=== PATIENT | male | born 1940 | race Caucasian/White ===

== ENCOUNTER 2020-10-12 20:56 | Observation (INO) | payer MEDICARE ==
[2020-10-12] MEDS ORDERED: Sodium Chloride 0.9% 10 ML Syringe FLUSH PRN (21:33)
[2020-10-12] MEDS ORDERED: Ondansetron 4 MG/2 ML SDV IV PRN (22:59)
[2020-10-12] MEDS ORDERED: Sodium Chloride 0.9% 1,000 ML IV SCH (23:00)
[2020-10-12] MEDS ORDERED: Warfarin 2.5 MG Tab PO SCH (23:15)
--- NOTE | 2020-10-12 23:23 | EDM.PDOC ---
ED HPI GENERAL MEDICAL PROBLEM - General Chief Complaint: General Stated Complaint: PASSED OUT Time Seen by Provider: 10/12/20 21:05 Source of Information: Reports: Patient, Family History Limitations: Reports: No Limitations - History of Present Illness INITIAL COMMENTS - FREE TEXT/NARRATIVE: Patient is a 80 YO M who presented to the ED because of a syncopal episode which happened at about 2029. They went to watch a game at 1900 and then got home at 2029. He went to remove the leash of this dog which got tangled into a pole and while removing it, he felt dizzy and passed out. He was unresponsive for 3-4 minutes and was confused for several minutes according to the . There is no associated headache,nausea,vomiting. Denies having any chest pain, palpitations. There is no cough/cold, fever,chills. At 2 pm today he slipped and fell and landed on his right shoulder. He said he wasn't feeling dizzy before falling. - Related Data Allergies Allergy/AdvReac Type Severity Reaction Status Date / Time No Known Allergies Allergy Verified 10/12/20 22:09 Home Meds: Home Meds .Fish Oil 1 dose PO DAILY 10/12/20 [History] .Vitamin D 1 dose PO DAILY 10/12/20 [History] Aspirin [Halfprin] 81 mg PO DAILY 10/12/20 [History] Metoprolol Succinate 50 mg PO DAILY 10/12/20 [History] Multivitamin 1 each PO DAILY 10/12/20 [History] Potassium Chloride 10 meq PO BID 10/12/20 [History] Warfarin [Coumadin] 7.5 mg PO MOWEFR 10/12/20 [History] Warfarin [Coumadin] 50 mg PO SUTUTHSA 10/12/20 [History] metFORMIN HCl [Metformin HCl ER] 500 mg PO DAILY 10/12/20 [History] Past Medical History HEENT History: Reports: Hard of Hearing, Other (See Below) Other HEENT History: Wears glasses and hearing aides. Cardiovascular History: Reports: Afib Endocrine/Metabolic History: Reports: Other (See Below) Other Endocrine/Metabolic History: Takes Metformin for diabetes. - Past Surgical History HEENT Surgical History: Reports: Tonsillectomy Cardiovascular Surgical History: Reports: Other (See Below) Other Cardiovascular Surgeries/Procedures: Stated had cardiac bypass and valve surgery in June 2020. History of vein stripping in legs. Social & Family History - Alcohol Use Days Per Week of Alcohol Use: 4 Number of Drinks Per Day: 1 Total Drinks Per Week: 4 - Recreational Drug Use Recreational Drug Use: No ED ROS GENERAL - Review of Systems Review Of Systems: See Below Constitutional: Reports: No Symptoms HEENT: Reports: No Symptoms Respiratory: Reports: No Symptoms Cardiovascular: Reports: No Symptoms Endocrine: Reports: No Symptoms GI/Abdominal: Reports: No Symptoms : Reports: No Symptoms Musculoskeletal: Reports: No Symptoms Skin: Reports: No Symptoms Neurological: Reports: Confusion, Dizziness, Syncope Psychiatric: Reports: No Symptoms ED EXAM, GENERAL - Physical Exam Exam: See Below Exam Limited By: No Limitations General Appearance: Alert, No Apparent Distress Eye Exam: Bilateral Eye: PERRL Ears: Normal External Exam, Normal Canal Nose: Normal Inspection, Normal Mucosa, No Blood Throat/Mouth: Normal Inspection, Normal Lips Head: Atraumatic, Normocephalic Neck: Normal Inspection, Supple, Non-Tender, Full Range of Motion Respiratory/Chest: No Respiratory Distress, Lungs Clear, Normal Breath Sounds, No Accessory Muscle Use, Chest Non-Tender Cardiovascular: Normal Peripheral Pulses, Regular Rate, Rhythm, No Edema, No Gallop GI/Abdominal: Normal Bowel Sounds, Soft, Non-Tender, No Organomegaly Back Exam: Normal Inspection, Full Range of Motion Extremities: Normal Inspection, Normal Range of Motion, Non-Tender, No Pedal Edema, Normal Capillary Refill Neurological: Alert, Oriented, CN II-XII Intact, Normal Cognition, Normal Gait, Normal Reflexes, No Motor/Sensory Deficits Psychiatric: Normal Affect Course - Vital Signs Text/Narrative:: Labs/EKG/CXR/Head CT result was discussed with patient and his Last Recorded V/S: Last Vital Signs Temp 36.5 C 10/12/20 21:00 Pulse Resp BP Pulse Ox - Orders/Labs/Meds Orders: Active Orders 24 hr Category Date Time Status Patient Status [ADT] Routine ADT 10/12/20 23:00 Active Ambulate [RC] ASDIRECTED Care 10/12/20 22:59 Active Blood Glucose Check, Bedside [RC] ONETIME Care 10/12/20 21:06 Active Cardiac Monitoring [RC] CONTINUOUS Care 10/12/20 23:04 Active EKG Documentation Completion [RC] ASDIRECTED Care 10/12/20 20:58 Active Intake and Output [RC] QSHIFT Care 10/12/20 23:04 Active Oxygen Therapy [RC] PRN Care 10/12/20 23:00 Active Pulse Oximetry [RC] PRN Care 10/12/20 23:04 Active VTE/DVT Education [RC] Per Unit Routine Care 10/12/20 23:00 Active Vital Signs [RC] Q4H Care 10/12/20 23:00 Active Heart Healthy Diet [DIET] Diet 10/13/20 Breakfast Ordered Chest 1V Frontal [CR] Stat Exams 10/12/20 21:33 Taken Head wo Cont [CT] Stat Exams 10/12/20 21:33 Taken BASIC METABOLIC PANEL,BMP [CHEM] Routine Lab 10/12/20 22:59 Ordered CBC WITH AUTO DIFF [HEME] AM Lab 10/13/20 05:11 Ordered .Fish Oil Med 10/13/20 09:00 Ordered 1 dose PO DAILY .Vitamin D Med 10/13/20 09:00 Ordered 1 dose PO DAILY Aspirin [Halfprin] Med 10/13/20 09:00 Ordered 81 mg PO DAILY Docusate Sodium/Sennosides [Senna Plus] Med 10/12/20 22:59 Ordered 1 tab PO BID PRN Metoprolol Succinate [Toprol XL] Med 10/13/20 09:00 Ordered 50 mg PO DAILY Multivitamin [Multivitamin] Med 10/13/20 09:00 Ordered 1 each PO DAILY Ondansetron [Zofran] Med 10/12/20 22:59 Ordered 4 mg IV Q4H PRN Potassium Chloride [Klor-Con 10] Med 10/13/20 09:00 Ordered 10 meq PO BID Sodium Chloride 0.9% [Normal Saline] 1,000 ml Med 10/12/20 23:00 Ordered IV ASDIRECTED Sodium Chloride 0.9% [Saline Flush] Med 10/12/20 21:33 Active 10 ml FLUSH ASDIRECTED PRN Warfarin [Coumadin] Med 10/12/20 23:15 Ordered 50 mg PO SUTUTHSA Warfarin [Coumadin] Med 10/13/20 23:07 Ordered 7.5 mg PO MOWEFR metFORMIN [Glucophage XR] Med 10/13/20 09:00 Ordered 500 mg PO DAILY Saline Lock Insert [OM.PC] Routine Oth 10/12/20 21:33 Ordered Sequential Compression Device [OM.PC] Per Unit Routine Oth 10/12/20 23:05 Orde red Resuscitation Status Routine Resus Stat 10/12/20 22:59 Ordered EKG 12 Lead [EK] Routine Ther 10/12/20 20:58 Ordered Medication Orders Aspirin (Halfprin) 81 mg PO DAILY [facility] Sodium Chloride (Normal Saline) 1,000 mls @ 100 mls/hr IV ASDIRECTED [facility] Metformin HCl (Glucophage Xr) 500 mg PO DAILY [facility] Metoprolol Succinate (Toprol Xl) 50 mg PO DAILY [facility] Non-Formulary Medication (.Fish Oil) 1 dose PO DAILY [facility] Non-Formulary Medication (.Vitamin D) 1 dose PO DAILY [facility] Non-Formulary Medication (Multivitamin [Multivitamin]) 1 each PO DAILY [facility] Ondansetron HCl (Zofran) 4 mg IV Q4H PRN PRN Reason: Nausea/Vomiting Potassium Chloride (Klor-Con 10) 10 meq PO BID [facility] Senna/Docusate Sodium (Senna Plus) 1 tab PO BID PRN PRN Reason: Constipation Sodium Chloride (Saline Flush) 10 ml FLUSH ASDIRECTED PRN PRN Reason: Keep Vein Open Warfarin Sodium (Coumadin) 7.5 mg PO MOWEFR [facility] Labs: Laboratory Tests 10/12/20 10/12/20 10/12/20 Range/Units 21:06 21:40 21:40 WBC 11.5 H (3.2-10.1) x10-3/uL RBC 4.61 (3.90-5.90) x10(6)uL Hgb 10.8 L (12.9-17.7) g/dL Hct 35.0 L (38.3-50.1) % MCV 75.9 L (80.8-98.7) fL MCH 23.3 L (27.0-33.3) pg MCHC 30.7 (28.7-35.3) g/dL RDW 17.0 H (12.4-15.0) % Plt Count 273 (117-477) x10(3)uL MPV 8.6 (6.7-11.0) fL Neut % (Auto) 63.7 (40.3-71.8) % Lymph % (Auto) 21.1 (15.8-45.3) % [place] % (Auto) 9.6 (5.5-15.2) % Eos % (Auto) 5.1 (0.1-6.8) % Baso % (Auto) 0.5 (0.3-3.8) % Neut # (Auto) 7.3 H (1.7-6.9) x10-3/uL Lymph # (Auto) 2.4 (0.5-4.5) x10-3/uL [place] # (Auto) 1.1 (0.0-1.2) x10-3/uL Eos # (Auto) 0.6 (0.0-0.6) x10-3/uL Baso # (Auto) 0.1 (0.0-0.3) x10-3/uL PT 23.5 H (9.0-11.1) sec INR 2.30 H (1.00-1.24) Sodium (135-145) mmol/L Potassium (3.5-5.3) mmol/L Chloride (100-110) mmol/L Carbon Dioxide (21-32) mmol/L BUN (7-18) mg/dL Creatinine (0.70-1.30) mg/dL Est Cr Clr Drug Dosing Estimated GFR (MDRD) (>60) BUN/Creatinine Ratio (9-20) Glucose (80-116) mg/dL POC Glucose 148 H (74-100) mg/dL Calcium (8.6-10.2) mg/dL Total Bilirubin (0.1-1.3) mg/dL AST (5-25) IU/L ALT (12-36) U/L Alkaline Phosphatase (56-112) IU/L Troponin I (4.0-60.3) pg/mL Total Protein (6.0-8.0) g/dL Albumin (3.2-4.6) g/dL Globulin g/dL Albumin/Globulin Ratio SARS-CoV-2 RNA (SARAH) (NEGATIVE) 10/12/20 10/12/20 10/12/20 Range/Units 21:40 21:40 21:55 WBC (3.2-10.1) x10-3/uL RBC (3.90-5.90) x10(6)uL Hgb (12.9-17.7) g/dL Hct (38.3-50.1) % MCV (80.8-98.7) fL MCH (27.0-33.3) pg MCHC (28.7-35.3) g/dL RDW (12.4-15.0) % Plt Count (117-477) x10(3)uL MPV (6.7-11.0) fL Neut % (Auto) (40.3-71.8) % Lymph % (Auto) (15.8-45.3) % [place] % (Auto) (5.5-15.2) % Eos % (Auto) (0.1-6.8) % Baso % (Auto) (0.3-3.8) % Neut # (Auto) (1.7-6.9) x10-3/uL Lymph # (Auto) (0.5-4.5) x10-3/uL [place] # (Auto) (0.0-1.2) x10-3/uL Eos # (Auto) (0.0-0.6) x10-3/uL Baso # (Auto) (0.0-0.3) x10-3/uL PT (9.0-11.1) sec INR (1.00-1.24) Sodium 139 (135-145) mmol/L Potassium 4.6 (3.5-5.3) mmol/L Chloride 103 (100-110) mmol/L Carbon Dioxide 28 (21-32) mmol/L BUN 29 H (7-18) mg/dL Creatinine 1.5 H (0.70-1.30) mg/dL Est Cr Clr Drug Dosing TNP Estimated GFR (MDRD) 45 L (>60) BUN/Creatinine Ratio 19.3 (9-20) Glucose 137 H (80-116) mg/dL POC Glucose (74-100) mg/dL Calcium 8.7 (8.6-10.2) mg/dL Total Bilirubin 0.5 (0.1-1.3) mg/dL AST 29 H (5-25) IU/L ALT 32 (12-36) U/L Alkaline Phosphatase 75 (56-112) IU/L Troponin I 19.6 (4.0-60.3) pg/mL Total Protein 7.0 (6.0-8.0) g/dL Albumin 3.8 (3.2-4.6) g/dL Globulin 3.2 g/dL Albumin/Globulin Ratio 1.2 SARS-CoV-2 RNA (SARAH) Negative (NEGATIVE) Meds: Medications Generic Name Dose Route Start Last Admin Trade Name Freq PRN Reason Stop Dose Admin Aspirin 81 mg 10/13/20 09:00 Halfprin PO DAILY [facility] Sodium Chloride 1,000 mls @ 100 mls/hr 10/12/20 23:00 Normal Saline IV ASDIRECTED [facility] Metformin HCl 500 mg 10/13/20 09:00 Glucophage Xr PO DAILY [facility] Metoprolol Succinate 50 mg 10/13/20 09:00 Toprol Xl PO DAILY [facility] Non-Formulary Medication 1 dose 10/13/20 09:00 .Fish Oil PO DAILY [facility] Non-Formulary Medication 1 dose 10/13/20 09:00 .Vitamin D PO DAILY [facility] Non-Formulary Medication 1 each 10/13/20 09:00 Multivitamin [Multivitamin] PO DAILY [facility] Ondansetron HCl 4 mg 10/12/20 22:59 Zofran IV Q4H PRN Nausea/Vomiting Potassium Chloride 10 meq 10/13/20 09:00 Klor-Con 10 PO BID [facility] Senna/Docusate Sodium 1 tab 10/12/20 22:59 Senna Plus PO BID PRN Constipation Sodium Chloride 10 ml 10/12/20 21:33 Saline Flush FLUSH ASDIRECTED PRN Keep Vein Open Warfarin Sodium 7.5 mg 10/13/20 23:07 Coumadin PO MOWEFR [facility] Warfarin Sodium 50 mg 10/12/20 23:15 Coumadin PO SUTUTHSA [facility] Departure - Departure Time of Disposition: 22:30 Disposition: Refer to Observation Condition: Good Clinical Impression: Syncope, Anemia, Chronic a-fib, Dehydration, Diabetes mellitus - Discharge Information Sepsis Event Note (ED) - Evaluation Sepsis Screening Result: No Definite Risk - Focused Exam Vital Signs: Vital Signs Temp 10/12/20 21:00 36.5 C - My Orders Last 24 Hours: My Active Orders 10/12/20 20:58 EKG Documentation Completion [RC] ASDIRECTED EKG 12 Lead [EK] Routine 10/12/20 21:06 Blood Glucose Check, Bedside [RC] ONETIME 10/12/20 21:33 Chest 1V Frontal [CR] Stat Head wo Cont [CT] Stat Sodium Chloride 0.9% [Saline Flush] 10 ml FLUSH ASDIRECTED PRN Saline Lock Insert [OM.PC] Routine 10/12/20 22:59 Ambulate [RC] ASDIRECTED BASIC METABOLIC PANEL,BMP [CHEM] Routine Docusate Sodium/Sennosides [Senna Plus] 1 tab PO BID PRN Ondansetron [Zofran] 4 mg IV Q4H PRN Resuscitation Status Routine 10/12/20 23:00 Patient Status [ADT] Routine Oxygen Therapy [RC] PRN VTE/DVT Education [RC] Per Unit Routine Vital Signs [RC] Q4H Sodium Chloride 0.9% [Normal Saline] 1,000 ml IV ASDIRECTED 10/12/20 23:04 Cardiac Monitoring [RC] CONTINUOUS Intake and Output [RC] QSHIFT Pulse Oximetry [RC] PRN 10/12/20 23:05 Sequential Compression Device [OM.PC] Per Unit Routine 10/12/20 23:15 Warfarin [Coumadin] 50 mg PO SUTUTHSA 10/13/20 05:11 CBC WITH AUTO DIFF [HEME] AM 10/13/20 Breakfast Heart Healthy Diet [DIET] 10/13/20 09:00 .Fish Oil 1 dose PO DAILY .Vitamin D 1 dose PO DAILY Aspirin [Halfprin] 81 mg PO DAILY Metoprolol Succinate [Toprol XL] 50 mg PO DAILY Multivitamin [Multivitamin] 1 each PO DAILY Potassium Chloride [Klor-Con 10] 10 meq PO BID metFORMIN [Glucophage XR] 500 mg PO DAILY 10/13/20 23:07 Warfarin [Coumadin] 7.5 mg PO MOWEFR - Assessment/Plan Last 24 Hours: My Active Orders 10/12/20 20:58 EKG Documentation Completion [RC] ASDIRECTED EKG 12 Lead [EK] Routine 10/12/20 21:06 Blood Glucose Check, Bedside [RC] ONETIME 10/12/20 21:33 Chest 1V Frontal [CR] Stat Head wo Cont [CT] Stat Sodium Chloride 0.9% [Saline Flush] 10 ml FLUSH ASDIRECTED PRN Saline Lock Insert [OM.PC] Routine 10/12/20 22:59 Ambulate [RC] ASDIRECTED BASIC METABOLIC PANEL,BMP [CHEM] Routine Docusate Sodium/Sennosides [Senna Plus] 1 tab PO BID PRN Ondansetron [Zofran] 4 mg IV Q4H PRN Resuscitation Status Routine 10/12/20 23:00 Patient Status [ADT] Routine Oxygen Therapy [RC] PRN VTE/DVT Education [RC] Per Unit Routine Vital Signs [RC] Q4H Sodium Chloride 0.9% [Normal Saline] 1,000 ml IV ASDIRECTED 10/12/20 23:04 Cardiac Monitoring [RC] CONTINUOUS Intake and Output [RC] QSHIFT Pulse Oximetry [RC] PRN 10/12/20 23:05 Sequential Compression Device [OM.PC] Per Unit Routine 10/12/20 23:15 Warfarin [Coumadin] 50 mg PO SUTUTHSA 10/13/20 05:11 CBC WITH AUTO DIFF [HEME] AM 10/13/20 Breakfast Heart Healthy Diet [DIET] 10/13/20 09:00 .Fish Oil 1 dose PO DAILY .Vitamin D 1 dose PO DAILY Aspirin [Halfprin] 81 mg PO DAILY Metoprolol Succinate [Toprol XL] 50 mg PO DAILY Multivitamin [Multivitamin] 1 each PO DAILY Potassium Chloride [Klor-Con 10] 10 meq PO BID metFORMIN [Glucophage XR] 500 mg PO DAILY 10/13/20 23:07 Warfarin [Coumadin] 7.5 mg PO MOWEFR
[2020-10-13] MEDS ORDERED: MULTIVITAMIN PO SCH (09:00)
[2020-10-13] MEDS ORDERED: VITAMIN D PO SCH (09:00)
[2020-10-13] MEDS ORDERED: FISH OIL PO SCH (09:00)
--- NOTE | 2020-10-13 10:11 | CR ---
INDICATION: Unresponsive episode/passed out. CHEST ONE VIEW: Two AP upright portable views of the chest 10/12/20 - no comparisons. The heart appears somewhat enlarged. Post median sternotomy change is noted. The aorta is tortuous to a mild degree with calcification in the arch area. Overlying EKG leads are noted. Pulmonary vasculature is slightly prominent in the upper lung guajardo raising question of a mild or early CHF - correlate clinically. A definite consolidating pneumonia or effusion was not identified. Overlying zipper pull is noted. Degenerative change is noted at the shoulder joints bilaterally with impingement suggested bilaterally. IMPRESSION: ASHD, cardiomegaly, post median sternotomy change with probable mild CHF. MTDD
[2020-10-13] MEDS ORDERED: Gadoteridol 279.3 MG/ML 20 ML SDV IV ONE (11:00)
--- NOTE | 2020-10-13 19:01 | PN ---
DATE SEEN: 10/13/2020 SUBJECTIVE: Riky Ibarra is a 80-year-old male admitted with episode of loss of consciousness. Etiology still uncertain. Laboratory studies were unremarkable. Troponin was negative, and MRI of his brain and CT revealed no pathology. He did have a bout of tachycardia, i.e., atrial fibrillation up to 140 simply walking in the [place]. Presently on Metoprolol-XL 50 mg 1 p.o. b.i.d. Other medicines reviewed and appropriate. LABORATORY STUDIES: None pending. OBJECTIVE: VITAL SIGNS: Stable. Blood pressure little elevated at 140s/80s. CONSTITUTIONAL: Speech was fluent. NECK: Benign. Thyroid small. CHEST: On auscultation, clear lung guajardo. HEART: Irregularly irregular at 80. ABDOMEN: Benign. ASSESSMENT: Vasovagal episodes versus tachycardia. PLAN: Increase metoprolol to 150 mg in divided doses. Caffeine in moderation. Follow up in 2 weeks' time. Cardiology visit to be considered. /[id number] IMELDA/NINFA
[2020-10-13] MEDS ORDERED: Potassium Chloride 10 MEQ Tab.ER *PTOM PO SCH (21:00)
[2020-10-13] MEDS ORDERED: Metoprolol Succinate 50 MG Tab.ER *PTOM PO SCH (21:00)
[2020-10-13] MEDS ORDERED: Warfarin 2.5 MG Tab *PTOM PO SCH (21:00)
[2020-10-13] MEDS ORDERED: Aspirin 81 MG Tab.EC PO SCH (21:00)
--- NOTE | 2020-10-14 06:51 | HP ---
ADMISSION DATE: 10/12/2020 Loss of consciousness, vasovagal episode. HISTORY OF PRESENT ILLNESS: Riky Ibarra is a 80-year-old male who was seen at [facility] on the evening of 10/12/2020. He had been in reasonable health. He had gone to the local basketball game, left the house at 0700, had an uneventful time, and got home shortly after about 0930. He went out to unwrap the wiring for his dog on a pole outside the house, bent down, kneeled down, and collapsed. Uncertain of circumstances. Did not hurt himself during the fall. was attending and noted he was on the ground, unresponsive, not moving, not wakeful, lasted maybe about 3 minutes. He had no preceding symptoms of chest pain. He was a little bit confused when he woke up, was able to be up and about, and attended to and addressed for care. In the interim, again he had noted no recent chest pain or complicating issue. Had coronary bypass surgery in two valves, one replaced, one repaired, June 2020. Doing well. Cardiology followup has been satisfactory. MEDICATIONS: Daily medications include: 1. Pravastatin 80 mg one p.o. daily, hyperlipidemia. 2. Fish oil. 3. Vitamin D. 4. Aspirin. 5. Metformin 500 mg b.i.d., NIDDM. 6. Metoprolol XL 50 mg 1 p.o. daily, blood pressure control. 7. Multivitamin. 8. 10 mEq potassium chloride, hypokalemia. 9. Warfarin per protocol. ALLERGIES: No known medication, environmental, or latex allergies. PAST MEDICAL HISTORY: Significant for previous coronary bypass surgery x1, preexisting heart disease, in two valves, replaced June 2020. He has had no major other operative procedures, hospitalizations, unusual childhood diseases, major injuries, or fractures. Medical problems include NIDDM, hypertension, and coronary disease. 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 Quit smoking in 1975. is 80, good health. Three kids, two boys and one daughter. Seven grandchildren, six boys and one girl. Remote smoker. No alcohol or illicit drug use. FAMILY HISTORY: Negative for heart disease. REVIEW OF SYSTEMS: 13 review of systems noted. Pertinent positives and negatives are listed in HPI. All other systems can be considered negative or normal without conflict. PHYSICAL EXAMINATION: VITAL SIGNS: 36.6, 72, 144/75, 16 and 18. GENERAL: Cooperative, conversant. Appears his stated age. HEENT: Conjunctivae clear. Bright tympanic membranes. Clear nasal discharge. Mouth and oropharynx clear. NECK: Benign. Thyroid small. CHEST: On auscultation, clear in all lung guajardo. HEART: On auscultation, no ectopy or murmur. Sternotomy scar well healed. ABDOMEN: Benign. No hepatosplenomegaly. No palpable masses. GENITOURINARY and RECTAL: Deferred. EXTREMITIES: Well perfused. LABORATORY STUDIES: White count 11,500, hemoglobin 10.8, hematocrit 35.5, MCV 75.9, platelets 273,000. Repeat; 11,000 white count, 10.4 hemoglobin, 33.3 hematocrit. INR 2.30, therapeutic. Electrolytes revealed moderate reduction in GI function. BUN 29, repeat 23; creatinine 1.5, repeat 1.2; GFR 45, repeat 58. COVID negative. CAT scan: No pathology. Some decrease in brain size. EKG: Atrial fibrillation, rate controlled in the 70s. ASSESSMENT: Vasovagal versus syncopal episode versus neurological event. PLAN: CT normal. MRI will be obtained, we will stop his IV fluids, advance diet, and proceed accordingly. EXPECTATION: Discharge this evening. /[id number] /NINFA
[2020-10-14] MEDS ORDERED: metFORMIN 500 MG Tab.ER *PTOM PO SCH (09:00)
[2020-10-14] MEDS ORDERED: Warfarin 2.5 MG Tab *PTOM PO SCH (21:00)
== END 2020-10-13 18:55 | disposition home or self-care (01) ==
LOC: FB.ED 20:56 → FB.MS 23:10
PROVIDERS: ADMIT Emergency Medicine; ATTEND Family Medicine
DX: R55 Syncope and collapse (principal); Z79.899 Other long term (current) drug therapy; Z91.040 Latex allergy status; Z87.891 Personal history of nicotine dependence; Z20.822 Contact with and (suspected) exposure to COVID-19
CPT/HCPCS: 36415; 70450; 70553; 71045; 80048; 80053; 82962; 84484; 85025; 85610; 93005; 94760; 99285; 99285-25; A9579; G0378; J7030; U0002

== ENCOUNTER 2020-11-13 09:04 | Emergency (ER) | payer MEDICARE ==
--- NOTE | 2020-11-13 09:11 | EDM.PDOC ---
ED HPI GENERAL MEDICAL PROBLEM - General Stated Complaint: SYNCOPE; DIZZINESS Time Seen by Provider: 11/13/20 09:10 Source of Information: Reports: Patient History Limitations: Reports: No Limitations - History of Present Illness INITIAL COMMENTS - FREE TEXT/NARRATIVE: 80-year-old male who was admitted to this hospital on 10/12/2020 with syncope. He had a fairly complete workup and was unrevealing and he was discharged home. 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 He did go to the clinic yesterday and was seen by the nurse practitioner at [facility] in [place] and she found that his vital signs were normal and some blood tests were performed which I do not have access to and he was set up to see the superintendent renting managing next week. 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 He states that he felt well last night and he was feeling okay this morning but he was sitting in his chair and he began to feel dizzy. This seemed to progressively worsen and he passed out. He states he was out for about a minute and then when he awakened he was feeling nauseated and he checked his pulse using his oxygen sat probe and it was as low as 26 at that time. He had another episode of syncope shortly after this. The first episode was around 8 AM and the second episode was about 8:15 AM. He presents to the emergency department via ambulance and states that those pretty much back to normal. There is no more dizziness. There was really no change in his symptoms with movement or with change in position. There is no chest pain associated with this. There was no shortness of breath. He did have the nausea but no vomiting and the nausea has completely resolved now. No diaphoresis. On the monitor now I have noted that he is in atrial fibrillation and his heart rate varies anywhere from the 60s to the 30-40 range at times. He has had no fever. No cough. No nasal congestion. No sore throat. There are no other associated signs or symptoms. There are no other modifying factors. Onset: Today (8 AM and 8:15 AM) Duration: Resolved Prior to Arrival Location: Reports: Other (Not applicable. 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: Reports: Other (see below) (Nothing.) - Related Data Allergies Allergy/AdvReac Type Severity Reaction Status Date / Time No Known Allergies Allergy Verified 10/12/20 22:09 Home Meds: Home Meds .Fish Oil 1 dose PO DAILY 10/12/20 [History] .Vitamin D 1 dose PO DAILY 10/12/20 [History] Aspirin [Halfprin] 81 mg PO DAILY 10/12/20 [History] Metoprolol Succinate 50 mg PO BID 10/12/20 [History] Multivitamin 1 each PO DAILY 10/12/20 [History] Potassium Chloride 10 meq PO BID 10/12/20 [History] Warfarin [Coumadin] 5 mg PO SUTUTHSA 10/12/20 [History] Warfarin [Coumadin] 7.5 mg PO MOWEFR 10/12/20 [History] metFORMIN HCl [Metformin HCl ER] 500 mg PO DAILY 10/12/20 [History] Pravastatin Sodium 80 mg PO DAILY 10/13/20 [History] Warfarin [Coumadin] 5 mg PO [id number] tablet 10/13/20 [Rx] Past Medical History HEENT History: Reports: Hard of Hearing, Other (See Below) Other HEENT History: Wears glasses and hearing aides. Cardiovascular History: Reports: Afib, CAD, Heart Valve Replacement, High Cholesterol, Hypertension Endocrine/Metabolic History: Reports: Diabetes, Type II, Other (See Below) - Past Surgical History HEENT Surgical History: Reports: Tonsillectomy Cardiovascular Surgical History: Reports: Other (See Below) Other Cardiovascular Surgeries/Procedures: Stated had cardiac bypass and valve surgery in June 2020. History of vein stripping in legs. 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 Denies: Shortness of Breath Cardiovascular: Reports: Syncope, Other (Intermittent slow heart rate). Denies: Chest Pain GI/Abdominal: Reports: Nausea. Denies: Abdominal Pain, Vomiting : Reports: No Symptoms Musculoskeletal: Reports: No Symptoms Skin: Reports: No Symptoms Neurological: Reports: No Symptoms Psychiatric: Reports: No Symptoms Hematologic/Lymphatic: Reports: Easy Bleeding (Chronically anticoagulated on Coumadin.) Immunologic: Reports: No Symptoms ED EXAM, GENERAL - Physical Exam Exam: See Below Exam Limited By: No Limitations General Appearance: Alert, WD/WN, Obese, Other (Nontoxic appearing) Eye Exam: Bilateral Eye: EOMI, Normal Inspection, PERRL Ears: Normal External Exam, Hearing Grossly Normal Ear Exam: Bilateral Ear: Auricle Normal Nose: Normal Inspection, Normal Mucosa, No Blood Throat/Mouth: Normal Inspection, Normal Lips, Normal Oropharynx, Normal Voice, No Airway Compromise Head: Atraumatic, Normocephalic Neck: Normal Inspection, Supple, Non-Tender, Full Range of Motion Respiratory/Chest: No Respiratory Distress, Lungs Clear, Normal Breath Sounds, No Accessory Muscle Use, Chest Non-Tender Cardiovascular: Normal Peripheral Pulses, No Edema, No Murmur, Irregularly Irregular Peripheral Pulses: 2+: Radial (L), Radial (R), Dorsalis Pedis (L), Dorsalis Pedis (R) GI/Abdominal: Normal Bowel Sounds, Soft, Non-Tender, No Mass Back Exam: Normal Inspection, Full Range of Motion Extremities: Normal Inspection, Normal Range of Motion, Non-Tender, No Pedal Edema, Normal Capillary Refill, Other (Radial and dorsalis pedis pulses are present and symmetric bilaterally.) Neurological: Alert, Oriented, CN II-XII Intact, Normal Cognition, No Motor/Sensory Deficits Psychiatric: Normal Affect Skin Exam: Warm, Dry, Intact, Normal Color, No Rash #1 Interpretation EKG Date: 11/13/20 Time: 09:02 Rhythm: A-Fib Rate (Beats/Min): 62 Lavon: LAD-Left Lavon Deviation P-Wave: Absent QRS: RBBB ST-T: Normal QT: Prolonged Comparison: No Change (No change from EKG performed on 10/12/2020.) Course - Vital Signs Last Recorded V/S: Last Vital Signs Temp 36.6 C 11/13/20 09:05 Pulse 68 11/13/20 12:02 Resp 14 11/13/20 12:02 BP 135/73 11/13/20 12:02 Pulse Ox 100 11/13/20 12:02 Orthostatic Blood Pressure [ 132/54 Standing] Orthostatic Blood Pressure [ 141/60 Sitting] Orthostatic Blood Pressure [ 148/81 Supine] - Orders/Labs/Meds Orders: Active Orders 24 hr Category Date Time Status Chest 1V Frontal [CR] Stat Exams 11/13/20 09:44 Taken Peripheral IV Insertion Adult [OM.PC] Routine Oth 11/13/20 09:44 Ordered EKG 12 Lead [EK] Routine Ther 11/13/20 09:44 Ordered Labs: Laboratory Tests 11/13/20 11/13/20 11/13/20 Range/Units 09:35 09:35 09:35 WBC 9.2 (3.2-10.1) x10-3/uL RBC 4.86 (3.90-5.90) x10(6)uL Hgb 12.0 L (12.9-17.7) g/dL Hct 37.1 L (38.3-50.1) % MCV 76.4 L (80.8-98.7) fL MCH 24.7 L (27.0-33.3) pg MCHC 32.3 (28.7-35.3) g/dL RDW 18.6 H (12.4-15.0) % Plt Count 224 (117-477) x10(3)uL MPV 8.9 (6.7-11.0) fL Neut % (Auto) 75.0 H (40.3-71.8) % Lymph % (Auto) 14.4 L (15.8-45.3) % [place] % (Auto) 8.2 (5.5-15.2) % Eos % (Auto) 1.9 (0.1-6.8) % Baso % (Auto) 0.5 (0.3-3.8) % Neut # (Auto) 6.9 (1.7-6.9) x10-3/uL Lymph # (Auto) 1.3 (0.5-4.5) x10-3/uL [place] # (Auto) 0.7 (0.0-1.2) x10-3/uL Eos # (Auto) 0.2 (0.0-0.6) x10-3/uL Baso # (Auto) 0.0 (0.0-0.3) x10-3/uL PT 30.6 H (9.0-11.1) sec INR 3.04 H (1.00-1.24) Sodium 141 (135-145) mmol/L Potassium 4.6 (3.5-5.3) mmol/L Chloride 105 (100-110) mmol/L Carbon Dioxide 28 (21-32) mmol/L BUN 19 H (7-18) mg/dL Creatinine 1.3 (0.70-1.30) mg/dL Est Cr Clr Drug Dosing 47.57 mL/min Estimated GFR (MDRD) 53 L (>60) BUN/Creatinine Ratio 14.6 (9-20) Glucose 162 H (80-116) mg/dL Calcium 9.4 (8.6-10.2) mg/dL Magnesium 2.1 (1.8-2.5) mg/dL Total Bilirubin 0.7 (0.1-1.3) mg/dL AST 47 H D (5-25) IU/L ALT 57 H D (12-36) U/L Alkaline Phosphatase 72 (56-112) IU/L Troponin I (4.0-60.3) pg/mL Total Protein 6.7 (6.0-8.0) g/dL Albumin 3.6 (3.2-4.6) g/dL Globulin 3.1 g/dL Albumin/Globulin Ratio 1.2 Urine Color (YELLOW) Urine Appearance (CLEAR) Urine pH (5.0-6.5) Ur Specific [place] (1.010-1.025) Urine Protein (NEGATIVE) mg/dL Urine Glucose (UA) (NORMAL) mg/dL Urine Ketones (NEGATIVE) mg/dL Urine Occult Blood (NEGATIVE) Urine Nitrite (NEGATIVE) Urine Bilirubin (NEGATIVE) Urine Urobilinogen (NEGATIVE) mg/dL Ur Leukocyte Esterase (NEGATIVE) Urine RBC (0-5) Urine WBC (0-5) Ur Squamous Epith Cells (NS,R,O) Urine Bacteria (NS) SARS-CoV-2 RNA (SARAH) (NEGATIVE) 11/13/20 11/13/2011/13/21 Range/Units 09:35 10:33 10:45 WBC (3.2-10.1) x10-3/uL RBC (3.90-5.90) x10(6)uL Hgb (12.9-17.7) g/dL Hct (38.3-50.1) % MCV (80.8-98.7) fL MCH (27.0-33.3) pg MCHC (28.7-35.3) g/dL RDW (12.4-15.0) % Plt Count (117-477) x10(3)uL MPV (6.7-11.0) fL Neut % (Auto) (40.3-71.8) % Lymph % (Auto) (15.8-45.3) % [place] % (Auto) (5.5-15.2) % Eos % (Auto) (0.1-6.8) % Baso % (Auto) (0.3-3.8) % Neut # (Auto) (1.7-6.9) x10-3/uL Lymph # (Auto) (0.5-4.5) x10-3/uL [place] # (Auto) (0.0-1.2) x10-3/uL Eos # (Auto) (0.0-0.6) x10-3/uL Baso # (Auto) (0.0-0.3) x10-3/uL PT (9.0-11.1) sec INR (1.00-1.24) Sodium (135-145) mmol/L Potassium (3.5-5.3) mmol/L Chloride (100-110) mmol/L Carbon Dioxide (21-32) mmol/L BUN (7-18) mg/dL Creatinine (0.70-1.30) mg/dL Est Cr Clr Drug Dosing mL/min Estimated GFR (MDRD) (>60) BUN/Creatinine Ratio (9-20) Glucose (80-116) mg/dL Calcium (8.6-10.2) mg/dL Magnesium (1.8-2.5) mg/dL Total Bilirubin (0.1-1.3) mg/dL AST (5-25) IU/L ALT (12-36) U/L Alkaline Phosphatase (56-112) IU/L Troponin I 11.3 (4.0-60.3) pg/mL Total Protein (6.0-8.0) g/dL Albumin (3.2-4.6) g/dL Globulin g/dL Albumin/Globulin Ratio Urine Color Yellow (YELLOW) Urine Appearance Clear (CLEAR) Urine pH 6.0 (5.0-6.5) Ur Specific [place] 1.015 (1.010-1.025) Urine Protein 30 H (NEGATIVE) mg/dL Urine Glucose (UA) 50 H (NORMAL) mg/dL Urine Ketones Negative (NEGATIVE) mg/dL Urine Occult Blood Moderate H (NEGATIVE) Urine Nitrite Negative (NEGATIVE) Urine Bilirubin Negative (NEGATIVE) Urine Urobilinogen Normal (NEGATIVE) mg/dL Ur Leukocyte Esterase Negative (NEGATIVE) Urine RBC 0-5 (0-5) Urine WBC 0-5 (0-5) Ur Squamous Epith Cells Few H (NS,R,O) Urine Bacteria Few H (NS) SARS-CoV-2 RNA (SARAH) Negative (NEGATIVE) Meds: Medications Discontinued Medications Generic Name Dose Route Start Last Admin Trade Name Freq PRN Reason Stop Dose Admin Sodium Chloride 1,000 mls @ 100 mls/hr 11/13/20 10:15 11/13/20 10:25 Normal Saline IV 100 mls/hr ASDIRECTED SANTIAGO Administration Meclizine HCl 25 mg 11/13/20 09:46 11/13/20 10:21 Meclizine 25 Mg Tab PO 11/13/20 09:47 Not Given ONETIME ONE Sodium Chloride 10 ml 11/13/20 09:44 11/13/20 10:51 Sodium Chloride 0.9% 10 Ml Syringe FLUSH 10 ml ASDIRECTED PRN Administration Keep Vein Open - Radiology Interpretation Free Text/Narrative:: Portable chest x-ray showed no acute disease. - Re-Assessments/Exams Free Text/Narrative Re-Assessment/Exam: 11/13/20 10:10: Patient feels back to normal at present. He had normal orthostatic vital signs. From his history and also from laceration with his EKG, it appears that he is having into a bradycardia/heart block that is causing the syncopal episodes. I am awaiting his blood test at this point and his chest x- ray. His EKG shows atrial fibrillation and really no change from his previous EKG a month ago. However, he will most probably need a pacemaker for this problem. I did have the nursing staff place pacer pads and we will continue to monitor the patient closely. I discussed this with the patient and with his . He will need transfer to another facility for this as services are not available at [facility]. He would want me to discuss his case with the doctors at [facility] in [place]. 11/13/20 10:35: All of his blood tests are reassuring. He does have some mild LFT elevation. His INR was 3.04. His chest x-ray was normal. He has remained hemodynamically and neurologically stable. I did call and discuss the patient's case with Dr. Manzo, hospitalist at [facility] in [place], and he has agreed to accept the patient in transfer. I did order a rapid Covid test and the patient informs me that he has been fully vaccinated for Covid recently. She will need to be transferred via ALS ambulance to [place] for direct admission. Departure - Departure Time of Disposition: 12:15 Disposition: DC/Tfer to Acute Hospital 02 Condition: Fair Clinical Impression: Heart block Syncope Qualifiers: Syncope type: unspecified Qualified Code(s): R55 - Syncope and collapse - Discharge Information Referrals: Riky Helton MD [Primary Care Provider] - Forms: ED Department Discharge Sepsis Event Note (ED) - Focused Exam Vital Signs: Vital Signs Temp Pulse Resp BP Pulse Ox 11/13/20 12:02 68 14 135/73 100 11/13/20 11:33 67 16 137/55 L 99 11/13/20 11:05 69 14 159/79 H 100 11/13/20 09:05 36.6 C 61 16 156/64 H 98 - My Orders Last 24 Hours: My Active Orders 11/13/20 09:44 Chest 1V Frontal [CR] Stat Peripheral IV Insertion Adult [OM.PC] Routine EKG 12 Lead [EK] Routine - Assessment/Plan Last 24 Hours: My Active Orders 11/13/20 09:44 Chest 1V Frontal [CR] Stat Peripheral IV Insertion Adult [OM.PC] Routine EKG 12 Lead [EK] Routine
[2020-11-13] MEDS ORDERED: Sodium Chloride 0.9% 10 ML Syringe FLUSH PRN (09:44)
[2020-11-13] MEDS ORDERED: Meclizine 25 MG Tab PO ONE (09:46)
[2020-11-13] MEDS ORDERED: Sodium Chloride 0.9% 1,000 ML IV SCH (10:15)
--- NOTE | 2020-11-15 11:56 | CR ---
INDICATION: Dizziness, weakness. CHEST ONE VIEW: AP portable upright view of the chest 11/13/20 was compared with 10/12/20. The heart is again noted to be enlarged with prominence of the upper lung pulmonary vasculature raising question of CHF. No gross lung edema was seen. Post median sternotomy change again noted. Overlying EKG leads again noted. IMPRESSION; Findings remain compatible with cardiomegaly and CHF in a post median sternotomy patient. MTDD
== END 2020-11-13 12:15 ==
LOC: FB.ED 09:04
DX: I45.9 Conduction disorder, unspecified (principal); I48.91 Unspecified atrial fibrillation; I25.10 Atherosclerotic heart disease of native coronary artery without angina pectoris; E78.00 Pure hypercholesterolemia, unspecified; E11.9 Type 2 diabetes mellitus without complications; Z79.82 Long term (current) use of aspirin; Z79.84 Long term (current) use of oral hypoglycemic drugs; Z79.01 Long term (current) use of anticoagulants; Z79.899 Other long term (current) drug therapy; Z20.822 Contact with and (suspected) exposure to COVID-19
CPT/HCPCS: 71045; 80053; 81001; 83735; 84484; 85025; 85610; 93005; 99285-25; J7030; U0002